=== PATIENT | male | born 1930 | race Caucasian/White ===

== ENCOUNTER → 2016-09-22 13:36 | Outpatient (CLI) | payer MEDICARE, OTHER ==
[2015-04-17 07:29] VITALS: BMI 37.3
[~2016-09-22 13:36] MED LIST: ASPIRIN EC81 M1 PO; COREG12.5 MG PO; COREG6.25 MG PO; COZAAR100 MG PO; PLAVIX75 MG PO; VITAMIN B-1000 MCG/M IM; ZESTRIL10 MG PO
== END | disposition home or self-care (01) ==
LOC: D.CT 09-01 10:00
DX: R91.1 Solitary pulmonary nodule (principal)